=== PATIENT | male | born 1975 ===

== ENCOUNTER 2024-01-17 05:40 | Day surgery (SDC) | payer OTHER ==
[2024-01-17] MEDS ORDERED: BUPIVACAINE HCL/Mpf 0.5% 10ML VIAL ONE (07:07)
[2024-01-17] MEDS ORDERED: LIDOCAINE HCL 1%/EPINEPHRINE 20ML VIAL IJ ONE (07:08)
[2024-01-17] MEDS ORDERED: CEFAZOLIN SODIUM 1,000 MG VIAL ONE (07:08)
[2024-01-17] MEDS ORDERED: HYDROGEN PEROXIDE 473 ML BOTTLE TOP ONE (08:03)
[2024-01-17] MEDS ORDERED: TYLENOL325 MG PO (09:08)
[2024-01-17] MEDS ORDERED: PERCOCET 5-3251 EACH PO (09:08)
[2024-01-17] MEDS ORDERED: BACTRIM DS TAB1 EACH PO (09:09)
== END 2024-01-17 10:55 | disposition home or self-care (01) ==
LOC: CIR.AMB 05:40
PROVIDERS: ATTEND Surgery
DX: D21.0 Benign neoplasm of connective and other soft tissue of head, face and neck (principal); D49.2 Neoplasm of unspecified behavior of bone, soft tissue, and skin; R22.9 Localized swelling, mass and lump, unspecified; I10 Essential (primary) hypertension; E78.00 Pure hypercholesterolemia, unspecified; I25.10 Atherosclerotic heart disease of native coronary artery without angina pectoris